=== PATIENT | female | born 1970 | race Caucasian/White ===

== ENCOUNTER 2020-09-03 08:54 | Emergency (ER) | payer OTHER, MEDICAID ==
[~2020-09-03] VITALS: Ht 162.6 cm; Wt 105.2 kg
[2020-09-03] MEDS ORDERED: COMPAZINE10 M2 PO (09:58)
[2020-09-03] MEDS ORDERED: NAPROSYN500 MG PO (09:58)
[2020-09-03 11:10] VITALS: BP 189/103
== END 2020-09-03 11:12 | disposition home or self-care (01) ==
LOC: M.ERS 08:54
DX: G43.909 Migraine, unspecified, not intractable, without status migrainosus (principal); F17.210 Nicotine dependence, cigarettes, uncomplicated; J45.909 Unspecified asthma, uncomplicated; I10 Essential (primary) hypertension; Z88.5 Allergy status to narcotic agent; Z88.0 Allergy status to penicillin; Z88.6 Allergy status to analgesic agent

== ENCOUNTER 2020-12-31 17:00 | Emergency (ER) | payer OTHER, MEDICAID ==
[~2020-12-31] VITALS: Ht 170.2 cm; Wt 99.8 kg
--- NOTE | ~2020-12-31 | EMS ---
[facility] [address] [place] [address] EMS Patient Care Report Name: TAYLOR GARCIA Room: [facility] Page#: [id number] Admission: 12/31/20 Attend Phys: Discharge: 12/31/20 Date of : 70 Report #: [id number] THIS REPORT FOR: //name// Report Transmitted: 01/11/2021 14:39 EMS Care Summary KIKO CORTEZ Incident [id number] @ 12/31/2020 12:35 Incident Location [address] [place] [address] Patient MARCO MADDEN Male, 68 Years 1952-01-13 Patient Address [address] [place] [address] Patient History Endocrine Condition - Other,Cellulitis,Atrial Fibrillation,Other,Hypertension (HTN), Patient Allergies No known allergies, Patient Medications Humulin R, Finasteride, Aspirin, Aleve, Naproxen, Lisinopril, Novolin N, Sotalol, Chief Complaint Lethargy Disposition Transported No Lights/[place] Dispatch Reason Breathing Problem Transported To [facility] Narrative [facility] 319 RESPOND ON AN EMERGENCY AT THE [facility], [place] SIDE. [address] NURSE STATES PT WENT TO [facility] YESETERDAY AND HAD A [facility] [address] [place] [address] EMS Patient Care Report Name: TAYLOR GARCIA [facility] [id number] Admission: 12/31/20 Attend Phys: Discharge: 12/31/20 Date of : 70 Report #: [id number] BLOOD TRANSFUSION. HIS H&H WAS LOW. TODAY HIS BLOOD PRESSURE WAS LOW AND SO WERE HIS O2 SATS. HIM BEING PALE IS NOT NEW. HE MAY HAVE A BLEED BUT NOT SURE WHERE. HE RECENTLY HAD HIS [employer]ER CATHETER REMOVED AND HAS HAD DIABETIC FOOT ULCERS. HIS LAST BGL WAS 317. PT DENIES HAVING PAIN ANYWHERE. NO SOB. NO N/V/D. THE STIFFNESS AND TREMORS IN HIS ARMS STARTED THIS MORNING. NURSE STATES HE WILL BE GOING BACK TO [facility] ER. FOUND 68YO MALE LAYING SUPINE SEMI FOWLERS IN BED. AIRWAY IS OPEN. BREATHING IS NON LABORED. SKIN IS PALE, PINK, AND DRY. LETHARGIC/GENERALLY WEAK. PT IS A&OX4. HEENT UNREMARKABLE. EQUAL CHEST RISE AND FALL. ABD UNREMARKABLE. PELVIS INTACT. PT HAS ALL 4 EXTREMITIES WITH TREMORS AND RIGIDITY IN BILATERAL UPPER EXTREMITIES. GENERALIZED WEAKNESS. NO OTHER VISIBLE ABNORMALITIES FOUND AT THIS TIME. OBTAINED V/S AND PULSE OX READING. OBTAINED MANUAL BP. TRANSFERRED PT FROM BED TO STRETCHER BY DRAW SHEET. SECURED PT TO STRETCHER WITH 5 STRAPS AND 2 RAILS. PLACED PT ON O2 AT 4LPM BY NC. OBTAINED 4 LEAD EKG. 20G IV ATTEMPT IN LEFT FOREARM. 20G IV ATTEMPT IN RIGHT HAND. CHECKED D-STICK. CONTINUED TO MONITOR PT AND CALLED REPORT DURING TRANSPORT. TRANSFERRED PT FROM STRETCHER TO BED BY DRAW SHEET. TURNED OVER PT CARE TO [facility] MEDICAL STAFF. Initial Vitals @12:42SpO2: 97, @13:02SpO2: 96, @13:04SpO2: 96, @13:05SpO2: 97, @12:49 @12:45P: 72,R: 16,BP: 112/68, @13:02P: 73,R: 16,BP: 82/39, @13:04P: 72,R: 16,BP: 73/39, @12:45GCS: 15, @13:02GCS: 15, @13:04GCS: 15, @12:38 @12:59Glucose: 246, Assessments @12:38MENTAL:SKIN:HEENT:LUNG SOUNDS:ABDOMEN:PELVIS//GI:EXTREMITIES:PULSE:NEURO: Impression Hypotension Procedures @12:49Oxygen Complications: ,Response: Improved@12:54 cc () Site: Antecubital-LeftResponse: UnchangedFailed@12:57 cc () Site: Hand-RightResponse: UnchangedFailed@12:493-Lead ECGResponse: [place] [address] EMS Patient Care Report Name: TAYLOR GARCIA Room: [facility] Camilo#: [id number] Admission: 12/31/20 Attend Phys: Discharge: 12/31/20 Date of : 70 Report #: [id number] 12:34,Call Received 12:34,Dispatch Notified 12:34,Psap Call 12:35,Dispatched 12:35,En Route 12:36,On Scene 12:38,At Patient 12:38,BP: / M,PULSE: ,RR: R,SPO2: Ox,ETCO2: ,BG: ,PAIN: ,GCS: , 12:42,BP: / M,PULSE: ,RR: R,SPO2: 97 Ox,ETCO2: ,BG: ,PAIN: ,GCS: , 12:45,BP: 112/68 M,PULSE: 72,RR: 16 R,SPO2: Ox,ETCO2: ,BG: ,PAIN: ,GCS: , 12:45,BP: / M,PULSE: ,RR: R,SPO2: Ox,ETCO2: ,BG: ,PAIN: ,GCS: 15, 12:49,Oxygen Complications: ,,Response: Improved 12:49,3-Lead ECG,Response: UnchangedSucceeded, 12:49,BP: / M,PULSE: ,RR: R,SPO2: Ox,ETCO2: ,BG: ,PAIN: ,GCS: , 12:54, cc Site: Antecubital-Left,Response: UnchangedFailed, 12:57, cc Site: Hand-Right,Response: UnchangedFailed, 12:59,BP: / M,PULSE: ,RR: R,SPO2: Ox,ETCO2: ,B,PAIN: ,GCS: , 12:59,Depart Scene 13:02,BP: / M,PULSE: ,RR: R,SPO2: 96 Ox,ETCO2: ,BG: ,PAIN: ,GCS: , 13:02,BP: 82/39 M,PULSE: 73,RR: 16 R,SPO2: Ox,ETCO2: ,BG: ,PAIN: ,GCS: , 13:02,BP: / M,PULSE: ,RR: R,SPO2: Ox,ETCO2: ,BG: ,PAIN: ,GCS: 15, 13:04,BP: / M,PULSE: ,RR: R,SPO2: 96 Ox,ETCO2: ,BG: ,PAIN: ,GCS: , 13:04,BP: 73/39 M,PULSE: 72,RR: 16 R,SPO2: Ox,ETCO2: ,BG: ,PAIN: ,GCS: , 13:04,BP: / M,PULSE: ,RR: R,SPO2: Ox,ETCO2: ,BG: ,PAIN: ,GCS: 15, 13:05,BP: / M,PULSE: ,RR: R,SPO2: 97 Ox,ETCO2: ,BG: ,PAIN: ,GCS: , 13:10,At Destination 13:31,Call Closed Disclaimer v1.1 Copyright 2020 [employer]ention[employer] This EMS Care Summary contains data elements from the applicable legal record (which may be displayed differently). It is designed to provide pertinent information for the following purposes: continuity of care, clinical quality, and state data reporting. The complete legal record is available to ED staff and administrators of the receiving hospital in [employer]'s Patient Tracker. All data is provided "as is."
--- NOTE | ~2020-12-31 | EMS ---
[address] [address] EMS Patient Care Report Name: TAYLOR GARCIA Room: [facility] Camilo#: [id number] Admission: 12/31/20 Attend Phys: Discharge: 12/31/20 Date of : 70 Report #: [id number] THIS REPORT FOR: //name// Report Transmitted: 01/11/2021 14:38 EMS Care [place] [id number] @ 12/31/2020 16:15 Incident Location [address] [place] [address] Patient MAI GARCIA Female, 50 Years 1970 Patient Address [address] [place] [address] Patient History Unspecified asthma,Hypertension (HTN), Patient Allergies , Chief Complaint Vomiting Disposition Transported No Lights/[place] Dispatch Reason Sick Person Transported To [facility] Narrative [facility] 319 RESPOND NON EMERGENCY FOR NOW AT [address] [place] [address]. 50YO FEMALE NAUSEA AND VOMITING. DEHYDRATION. PT STATES SHE HAS BEEN HAVING NAUSEA, VOMITING, AND BACK PAIN SINCE MONDAY. ON MONDAY SHE ATE A G[employer]L[place]HE. SHE MAY HAVE GOT FOOD POISONING FROM THAT. SHE WOULD LIKE TO GO TO [facility] ER. HER VOMIT HAS LOOKED LIKE BILE. SHE IS HAVING PAIN ON BOTH SIDES OF HER LOW BACK, IN HER KIDNEY AREA. IT IS AN ACHING 4 OUT OF 10. NO OTHER COMPLAINTS. FOUND [address] [place] [address] EMS Patient Care Report Name: TAYLOR GARCIA Room: [facility].#: [id number] Admission: 12/31/20 Attend Phys: Discharge: 12/31/20 Date of : 70 Report #: [id number] 50YO FEMALE WALKING DOWN STEPS OF RESIDENCE. AIRWAY IS OPEN. BREATHING IS NON LABORED. SKIN IS WARM, PINK, AND DRY. PT IS A&OX4. HEENT UNREMARKABLE. EQUAL CHEST RISE AND FALL. ABD UNREMARKABLE. PELVIS INTACT. PT HAS ALL 4 EXTREMITIES WITH EQUAL STRENGTH AND MOVEMENT TO ALL. NO OTHER VISIBLE ABNORMALITIES FOUND AT THIS TIME. PT STEPPED INTO AMBULANCE AND LAID DOWN ON STRETCHER. OBTAINED V/S, PULSE OX READING 4 AND 12 LEAD EKG. 20G IV ATTEMPT IN LEFT AC. CHECKED D-STICK. 20G IV ATTEMPT IN RIGHT FOREARM. SECURED PT TO STRETCHER WITH 5 STRAPS AND 2 RAILS. CONTINUED TO MONITOR PT AND CALLED REPORT DURING TRANSPORT. PT STOOD AND WALKED FROM STRETCHER TO BED ON HER OWN. TURNED OVER PT CARE TO [facility] MEDICAL STAFF. Initial Vitals @16:41Pain: 11/07, @16:21Pain: 11/07, @16:25SpO2: 98, @16:45SpO2: 97, @16:46SpO2: 98, @16:24 @16:22 @16:22P: 116,R: 16,BP: 161/116, @16:45P: 109,R: 16,BP: 146/103, @16:22GCS: 15, @16:45GCS: 15, @16:21 @16:27Glucose: 116, Assessments @16:21MENTAL:SKIN:HEENT:LUNG SOUNDS:ABDOMEN:PELVIS//GI:EXTREMITIES:PULSE:NEURO: Impression Vomiting Procedures @16:32 cc () Site: Antecubital-RightResponse: UnchangedFailed@16:26 cc () Site: Antecubital-LeftResponse: UnchangedFailed@16:2412-Lead ECGResponse: UnchangedSucceeded@16:223-Lead ECGResponse: UnchangedSucceeded Timeline 16:14,Call Received 16:14,Dispatch Notified 16:14,Psap Call 16:15,Dispatched 16:15,En Route 16:20,On Scene 16:21,[place] [address] EMS Patient Care Report Name: TAYLOR GARCIA [facility] [id number] Admission: 12/31/20 Attend Phys: Discharge: 12/31/20 Date of : 70 Report #: [id number] 16:21,BP: / M,PULSE: ,RR: R,SPO2: Ox,ETCO2: ,BG: ,PAIN: 4,GCS: , 16:21,BP: / M,PULSE: ,RR: R,SPO2: Ox,ETCO2: ,BG: ,PAIN: ,GCS: , 16:22,BP: 161/116 M,PULSE: 116,RR: 16 R,SPO2: Ox,ETCO2: ,BG: ,PAIN: ,GCS: , 16:22,BP: / M,PULSE: ,RR: R,SPO2: Ox,ETCO2: ,BG: ,PAIN: ,GCS: 15, 16:22,3-Lead ECG,Response: UnchangedSucceeded, 16:22,BP: / M,PULSE: ,RR: R,SPO2: Ox,ETCO2: ,BG: ,PAIN: ,GCS: , 16:24,12-Lead ECG,Response: UnchangedSucceeded, 16:24,BP: / M,PULSE: ,RR: R,SPO2: Ox,ETCO2: ,BG: ,PAIN: ,GCS: , 16:25,BP: / M,PULSE: ,RR: R,SPO2: 98 Ox,ETCO2: ,BG: ,PAIN: ,GCS: , 16:26, cc Site: Antecubital-Left,Response: UnchangedFailed, 16:27,BP: / M,PULSE: ,RR: R,SPO2: Ox,ETCO2: ,B,PAIN: ,GCS: , 16:32, cc Site: Antecubital-Right,Response: UnchangedFailed, 16:35,Depart Scene 16:41,BP: / M,PULSE: ,RR: R,SPO2: Ox,ETCO2: ,BG: ,PAIN: 4,GCS: , 16:45,BP: / M,PULSE: ,RR: R,SPO2: 97 Ox,ETCO2: ,BG: ,PAIN: ,GCS: , 16:45,BP: 146/103 M,PULSE: 109,RR: 16 R,SPO2: Ox,ETCO2: ,BG: ,PAIN: ,GCS: , 16:45,BP: / M,PULSE: ,RR: R,SPO2: Ox,ETCO2: ,BG: ,PAIN: ,GCS: 15, 16:46,BP: / M,PULSE: ,RR: R,SPO2: 98 Ox,ETCO2: ,BG: ,PAIN: ,GCS: , 16:56,At Destination 17:12,Call Closed Disclaimer v1.1 Copyright 2020 [employer] [facility] [employer] This EMS Care Summary contains data elements from the applicable legal record (which may be displayed differently). It is designed to provide pertinent information for the following purposes: continuity of care, clinical quality, and state data reporting. The complete legal record is available to ED staff and administrators of the receiving hospital in [facility]'s Patient Tracker. All data is provided "as is."
[~2020-12-31 17:00] MED LIST: COMPAZINE10 M2 PO; NAPROSYN500 MG PO
[2020-12-31 17:23] LABS: URINE BLOOD NEGATIVE (Negative); URINE CLARITY CLEAR; URINE COLOR YELLOW; URINE GLUCOSE-RANDOM NEGATIVE (Negative); URINE KETONES 2+ (Negative); URINE LEUKOCYTES-REFLEX NEGATIVE (Negative); URINE NITRITE-REFLEX NEGATIVE (Negative); URINE PROTEIN 2+ (Negative); URINE SPECIFIC GRAVITY 1.025 (1.005-1.030)
[2020-12-31 17:26] LABS: ICTOTEST (BILI CONFIRMATORY) Negative (Negative); URINE BILIRUBIN 1+ (Negative)
[2020-12-31 17:27] LABS: SQUAMOUS >10 Many /LPF (0-3)
[2020-12-31 17:28] LABS: BACTERIA-REFLEX 1-9 Few /HPF (None Seen); FINE GRANULAR CASTS 0-3 Few /LPF (None Seen); HYALINE CASTS 0-3 Few /LPF (None Seen); MUCUS 0-3 Light strn/LPF (None Seen); URINE RBC None Seen /HPF (0-2); URINE WBC-REFLEX None Seen /HPF (0-5)
[2020-12-31 17:31] LABS: CRYSTALS None Seen /LPF (None Seen)
[2020-12-31 18:01] LABS: ABSOLUTE BASOPHILS 0.1 thou/uL (0.0-0.2); ABSOLUTE EOSINOPHILS 0.1 thou/uL (0.0-0.7); ABSOLUTE LYMPHOCYTES 1.7 thou/uL (0.8-5.3); ABSOLUTE MONOCYTES 0.6 thou/uL (0.0-1.2); ABSOLUTE NEUTROPHILS 9.1 thou/uL (1.6-8.1); BASOPHILS 0.5 %; EOSINOPHILS 0.6 %; HEMATOCRIT 42.2 % (37.0-47.0); HEMOGLOBIN 14.5 gm/dL (12.0-15.0); LYMPHOCYTES 14.7 %; MCH 29.3 pg (26.0-34.0); MCHC 34.4 g/dL (28.0-37.0); MCV 85.2 fL (80.0-100.0); MONOCYTES 4.8 %; MPV 8.1 fl. (7.2-11.1); NUCLEATED RBCS 0 /100WBC; PLATELET COUNT* 394 thou/uL (150-400); POLYS 79.4 %; RBC 4.95 mil/uL (4.20-5.00); RDW-CV 14.3 % (10.5-14.5); WBC 11.5 thou/uL (4.0-11.0)
[2020-12-31 18:38] LABS: CREATININE 0.8 mg/dL (0.6-1.3); POTASSIUM 3.1 mmol/L (3.5-5.1)
[2020-12-31 18:43] LABS: ALBUMIN 3.4 g/dL (3.4-5.0); TOTAL BILIRUBIN 0.5 mg/dL (<0.1-1.0); TOTAL PROTEIN 7.2 g/dL (6.4-8.2)
[2020-12-31] MEDS ORDERED: ZOFRAN ODT4 MG PO (19:24)
[2020-12-31] MEDS ORDERED: COMPAZINE10 M2 PO (19:24)
[2020-12-31 21:18] VITALS: BP 147/82
--- NOTE | 2021-01-01 15:50 | EKG ---
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 : 1970 Requested By: Mauri Forman Order Number: [id number] MD: Ward Jurado Measurements Intervals [place] Rate: 91 P: 22 NH: 136 QRS: -22 QRSD: 83 T: 37 QT: 420 QTc: 517 Interpretive Statements Sinus rhythm Borderline left axis deviation Prolonged QT interval No previous ECG available for comparison Electronically Signed On 01-01-2021 15:49:48 CDT by Ward Jurado [email or web address] <ELECTRONICALLY SIGNED> By: Ward Jurado MD, [facility] 01/01/21 1549 1801 1801 Ward Jurado MD, [facility] /EPI
== END 2020-12-31 21:05 | disposition home or self-care (01) ==
LOC: M.ERS 17:00
PROVIDERS: Emergency Medicine Emergency Medical Services
DX: R11.2 Nausea with vomiting, unspecified (principal); R10.32 Left lower quadrant pain; J45.909 Unspecified asthma, uncomplicated; I10 Essential (primary) hypertension; G43.909 Migraine, unspecified, not intractable, without status migrainosus; F17.210 Nicotine dependence, cigarettes, uncomplicated; Z88.5 Allergy status to narcotic agent; Z88.0 Allergy status to penicillin; Z88.6 Allergy status to analgesic agent

== ENCOUNTER 2021-04-02 01:17 | Emergency (ER) | payer OTHER, MEDICAID ==
[~2021-04-02] VITALS: Ht 170.2 cm; Wt 101.6 kg
[~2021-04-02 01:17] MED LIST changes: +ZOFRAN ODT4 MG PO
[2021-04-02 02:47] LABS: HEMATOCRIT 36.1 % (37.0-47.0); HEMOGLOBIN 12.4 gm/dL (12.0-15.0); MCH 29.8 pg (26.0-34.0); MCHC 34.3 g/dL (28.0-37.0); MCV 86.9 fL (80.0-100.0); MPV 7.9 fl. (7.2-11.1); NUCLEATED RBCS 0 /100WBC; PLATELET COUNT* 432 thou/uL (150-400); RBC 4.15 mil/uL (4.20-5.00); RDW-CV 13.2 % (10.5-14.5); WBC 8.7 thou/uL (4.0-11.0)
[2021-04-02 02:56] LABS: CALCIUM 8.7 mg/dL (8.5-10.1); CREATININE 0.9 mg/dL (0.6-1.3); POTASSIUM 3.4 mmol/L (3.5-5.1)
[2021-04-02 03:01] LABS: ALBUMIN 3.1 g/dL (3.4-5.0); TOTAL BILIRUBIN 0.3 mg/dL (<0.1-1.0)
[2021-04-02] MEDS ORDERED: LOPRESSOR50 MG PO (04:35)
[2021-04-02 04:52] LABS: ABSOLUTE LYMPHOCYTES 0.7 thou/uL (0.8-5.3); ABSOLUTE MONOCYTES 0.3 thou/uL (0.0-1.2); ABSOLUTE NEUTROPHILS 7.7 thou/uL (1.6-8.1); PLATELET ESTIMATE INCREASED; TOXIC GRANULATION Occasional
[2021-04-02 05:21] VITALS: BP 169/89
--- NOTE | 2021-04-02 09:26 | EKG ---
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 : 1970 Requested By: Viki Hayes Order Number: [id number] MD: Ward Jurado Measurements Intervals [place] Rate: 98 P: 0 [place]: 121 QRS: -14 QRSD: 92 T: 52 QT: 393 QTc: 502 Interpretive Statements Sinus rhythm Borderline prolonged QT interval Compared to ECG 12/31/2020 18:01:36 No significant changes Electronically Signed On 04-02-2021 9:26:22 CDT by Ward Jurado [email or web address] <ELECTRONICALLY SIGNED> By: Ward Jurado MD, [facility] 04/02/21 0926 012 0122 Ward Jurado MD, [facility] /EPI
== END 2021-04-02 05:16 | disposition home or self-care (01) ==
LOC: M.ERS 01:17
PROVIDERS: Emergency Medicine
DX: I10 Essential (primary) hypertension (principal); J45.909 Unspecified asthma, uncomplicated; G43.909 Migraine, unspecified, not intractable, without status migrainosus; F17.210 Nicotine dependence, cigarettes, uncomplicated; Z88.0 Allergy status to penicillin; Z88.5 Allergy status to narcotic agent